=== PATIENT | male | born 1960 | race Caucasian/White ===

== ENCOUNTER 2016-07-31 21:36 | Emergency (ER) | payer BC ==
[~2016-07-31 21:36] MED LIST: ASA5GR PO; HYDROCHLOROTHIAZIDE PO; HYOMAX OR; HYZAAR 100/25 T1 TAB PO; KLOR-CON 1010 MEQ PO; LEVBID PO; LOP50 PO; LOSARTAN PO; MULTIPLE VIT PO; PROZAC PO; SPIRO25 PO; ZOCOR40 PO
== END 2016-08-01 00:20 | disposition home or self-care (01) ==
LOC: ER 21:36
DX: T26.92XA Corrosion of left eye and adnexa, part unspecified, initial encounter (principal); T26.91XA Corrosion of right eye and adnexa, part unspecified, initial encounter; I10 Essential (primary) hypertension; K21.9 Gastro-esophageal reflux disease without esophagitis; I25.10 Atherosclerotic heart disease of native coronary artery without angina pectoris; Z79.82 Long term (current) use of aspirin; Z79.899 Other long term (current) drug therapy; W40.8XXA Explosion of other specified explosive materials, initial encounter; T65.891A Toxic effect of other specified substances, accidental (unintentional), initial encounter
CPT/HCPCS: 99283; A9270-GY